=== PATIENT | female | born 1980 | race Two or more races ===

== ENCOUNTER 2019-04-07 22:13 | Emergency (ER) | payer OTHER ==
[~2019-04-07] VITALS: Ht 162.6 cm; Wt 79.8 kg
[2019-04-07] MEDS ORDERED: QVAR (22:20)
[2019-04-07] MEDS ORDERED: NOVOLOG (22:20)
[2019-04-07] MEDS ORDERED: ALBUTEROL (22:20)
[2019-04-07] MEDS ORDERED: LANTUS (22:20)
[2019-04-07] MEDS ORDERED: ALBUTEROL/IPRATROPIUM 2.5MG/0.5MG, 3 ML NPPB ONE (23:00)
--- NOTE | 2019-04-07 23:14 | NUR ---
PT RESTING COMFORTABLY IN BED. MONITOR IN PLACE.
[2019-04-07 23:41] VITALS: BP 120/83
== END 2019-04-07 23:44 | disposition home or self-care (01) ==
LOC: ED 23:17
DX: J45.41 Moderate persistent asthma with (acute) exacerbation (principal); F17.210 Nicotine dependence, cigarettes, uncomplicated; E11.9 Type 2 diabetes mellitus without complications; Z90.49 Acquired absence of other specified parts of digestive tract; Z90.710 Acquired absence of both cervix and uterus
CPT/HCPCS: 71046; 93005; 99283; 99406; J7512; J7620

== ENCOUNTER 2019-08-23 04:11 | Emergency (ER) | payer MEDICAID ==
[~2019-08-23] VITALS: Ht 162.6 cm; Wt 80.4 kg
[~2019-08-23 04:11] MED LIST: ALBUTEROL; LANTUS; NOVOLOG; QVAR
[2019-08-23 04:12] VITALS: BP 139/85
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
[2019-08-23] MEDS ORDERED: HYDROcodone/APAP 5/325 TABLET ONE (04:52)
[2019-08-23] MEDS ORDERED: HYDROcodone/APAP 5/325 TABLET PO ONE (05:00)
== END 2019-08-23 05:16 | disposition home or self-care (01) ==
LOC: ED 04:41
DX: L02.214 Cutaneous abscess of groin (principal); E10.65 Type 1 diabetes mellitus with hyperglycemia; J45.909 Unspecified asthma, uncomplicated
CPT/HCPCS: 99283

== ENCOUNTER 2019-08-24 04:16 | Emergency (ER) | payer MEDICAID ==
[~2019-08-24] VITALS: Ht 162.6 cm; Wt 79.2 kg
[2019-08-24 04:19] VITALS: BP 122/82
[2019-08-24] MEDS ORDERED: LIDOCAINE 1%-EPI 1:100K, 20ML ONE (04:44)
[2019-08-24] MEDS ORDERED: LIDOCAINE 1%-EPI 1:100K, 20ML SQ ONE (05:00)
--- NOTE | 2019-08-24 05:13 | NUR ---
I & D COMPLETED BY MAINOR BRITO. PT TOLERATED WELL. PT RECEIVED WOUND CARE EDUCATION.
== END 2019-08-24 05:40 | disposition home or self-care (01) ==
LOC: ED 04:44
DX: L02.214 Cutaneous abscess of groin (principal)
CPT/HCPCS: 10060; 99283